=== PATIENT | female | born 1965 | race Caucasian/White ===

== ENCOUNTER 2017-04-29 15:36 | Outpatient (CLI) | END 2017-04-29 15:37 | disposition home or self-care (01) | LOC: LAB 15:36 | PROVIDERS: ATTEND Preventive Medicine Obesity Medicine | DX: N39.0 Urinary tract infection, site not specified (principal) | CPT/HCPCS: 81001 ==

== ENCOUNTER 2018-05-11 08:32 | Outpatient (CLI) ==
[2018-05-11 09:40] VITALS: BMI 29.2
== END 2018-05-11 08:33 | disposition home or self-care (01) ==
LOC: DIETCN 08:32
PROVIDERS: ATTEND Preventive Medicine Obesity Medicine
DX: E11.9 Type 2 diabetes mellitus without complications (principal)
CPT/HCPCS: 97802

== ENCOUNTER 2018-11-18 08:21 | Outpatient (CLI) | END 2018-11-18 08:22 | disposition home or self-care (01) | LOC: LAB 08:21 | PROVIDERS: ATTEND Preventive Medicine Obesity Medicine | DX: E11.9 Type 2 diabetes mellitus without complications (principal) | CPT/HCPCS: 36415; 83036 ==